=== PATIENT | male | born 1985 | race Caucasian/White ===

== ENCOUNTER 2019-04-15 14:42 | Emergency (ER) | payer OTHER ==
[~2019-04-15] VITALS: Ht 172.7 cm; Wt 85.2 kg
[~2019-04-15 14:42] MED LIST: IBUP-1542 PO
[2019-04-15 15:05] VITALS: BP 139/76; PULSE 91; RESP 16; Ht 172.7 cm; Wt 85.2 kg
--- NOTE | 2019-04-15 17:41 | ERD ---
ER Documentation Chief Complaint Chief Complaint trip/ fall last Sat; pain, 'snaps' unresolved. steady gait. HPI Patient presents with pain in his left foot and ankle after mechanical trip and fall while running that occurred last . He is able to ambulate but states he feels cracking when he does and has pain. No numbness or tingling. No other areas of injury. ROS All systems reviewed and are negative except as per history of present illness. Medications Home Meds Active Scripts Ibuprofen* (Motrin*) 600 Mg Tab, 600 MG PO Q6, #30 TAB Prov:ILDEFONSO ADAM PA-C 04/15/19 Allergies Allergies: Coded Allergies: No Known Allergy (Unverified , 04/15/19) PMhx/Soc History of Surgery: Yes (appendectomy; gallbladder surgery; pacemaker) Hx Neurological Disorder: Yes (stroke) Hx Cardiac Disorders: Yes (svt ; bradycardia) Hx Alcohol Use: Yes (socially) Hx Substance Use: No Hx Tobacco Use: No Smoking Status: Never smoker FmHx Family History: No diabetes Physical Exam Vitals Vital Signs Date Temp Pulse Resp B/P (MAP) Pulse Ox O2 O2 Flow FiO2 Time Delivery Rate 04/15/19 98.1 91 16 139/76 96 15:05 (97) Physical Exam Const: No acute distress Head: Atraumatic Eyes: Normal Conjunctiva ENT: Normal External Ears, Nose and Mouth. Neck: Full range of motion. No meningismus. Resp: Clear to auscultation bilaterally Cardio: Regular rate and rhythm, no murmurs Lower Extremity -left Skin: No laceration Compartments: Soft Motor: Full active range of motion hip/knee/ankle/foot Sensation: Intact to light touch Bones: Tender to palpation at first meta tarsal base Joints: No effusion or laxity Pulses/Perfusion: 2+ DP, Capillary refill < 2 seconds Procedures/MDM Patient has left foot and ankle pain and appears to There is an approximate 3 x 1 mm ossific density seen dorsal to the talonavicular joint with the minimal associated soft tissue swelling suggestive of a fracture fragment. He patient was very adamant about not wanting a splint or crutches. He wants a walking boot. I did give him a boot but recommended that he use crutches as well but he further declined the crutches. He was given prescription for pain medication and outpatient referral to orthopedics. He is neurovascularly intact. Patient counseled regarding my diagnostic impression and care plan. Prior to discharge all questions answered. Pt agrees with treatment plan and understands strict return precautions. Pt is instructed to follow up with primary care provider within 24-48 hours. Precautionary instructions provided including instructions to return to the ER if not improving or for any worsening or changing symptoms or concerns. Departure Diagnosis: Primary Impression: Foot fracture Condition: Stable Patient Instructions: Fracture, Foot Referrals: [facility] [place] YOU HAVE RECEIVED A MEDICAL SCREENING EXAM AND THE RESULTS INDICATE THAT YOU DO NOT HAVE A CONDITION THAT REQUIRES URGENT TREATMENT IN THE EMERGENCY DEPARTMENT. FURTHER EVALUATION AND TREATMENT OF YOUR CONDITION CAN WAIT UNTIL YOU ARE SEEN IN YOUR DOCTORS OFFICE WITHIN THE NEXT 1-2 DAYS. IT IS YOUR RESPONSIBILITY TO MAKE AN APPOINTMENT FOR FOLOW-UP CARE. IF YOU HAVE A PRIMARY DOCTOR --you should call your primary doctor and schedule and appointment IF YOU DO NOT HAVE A PRIMARY DOCTOR YOU CAN CALL OUR PHYSICIAN REFERRAL HOTLINE AT . IF YOU CAN NOT AFFORD TO SEE A PHYSICIAN YOU CAN CHOSE FROM THE FOLLOWING [facility] INSTITUTIONS: [facility] [address] [place] [address] [facility] [address] [place], [place] [id number] [place] [address] [address] [place] [address] [facility] Hours: Mon-Fri 9:00 AM - 5:00 PM Additional Instructions: SPECIALIST: YOU HAVE A MEDICAL CONDITION WHICH REQUIRES YOU TO SEE A SPECIALIST WITHIN THE NEXT 1-2 DAYS. PLEASE FOLLOW UP WITH YOUR PRIMARY PHYSICIAN FOR REFFERAL.IF YOU DO NOT HAVE A PRIMARY CARE PHYSICIAN AND/OR YOU CAN NOT AFFORD TO SEE A PHYSICIAN THE FOLLOWING RESOURCES HAVE BEEN SUPPLIED TO YOU. IT IS YOUR RESPONSIBILITY TO BE SEEN BY THE SPECIALIST ILDEFONSO ADAM PA-C Apr 15, 2019 17:41
== END 2019-04-15 18:00 | disposition home or self-care (01) ==
LOC: FTE 14:42
DX: S92.902A Unspecified fracture of left foot, initial encounter for closed fracture (principal); W01.0XXA Fall on same level from slipping, tripping and stumbling without subsequent striking against object, initial encounter; Y92.9 Unspecified place or not applicable; Z86.73 Personal history of transient ischemic attack (TIA), and cerebral infarction without residual deficits; Z95.0 Presence of cardiac pacemaker
CPT/HCPCS: 73610; 73630; Z7502